=== PATIENT | female | born 2000 | race African-American/Black ===

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

== ENCOUNTER 2022-03-04 10:45 | Emergency (ER) | payer OTHER ==
[~2022-03-04] VITALS: Ht 162.6 cm; Wt 71.7 kg
[~2022-03-04 10:45] MED LIST: MACRODANTIN50 MG PO
== END 2022-03-04 16:25 | disposition home or self-care (01) ==
LOC: EMR PED 10:45 → ER 10:45
DX: R11.10 Vomiting, unspecified (principal); R51.9 Headache, unspecified; R12 Heartburn; R19.7 Diarrhea, unspecified; Z20.822 Contact with and (suspected) exposure to COVID-19

== ENCOUNTER 2022-07-09 09:24 | Emergency (ER) | payer OTHER ==
[~2022-07-09] VITALS: Ht 162.6 cm; Wt 58.5 kg
[2022-07-09] MEDS ORDERED: PEPCID AC20 MG PO (15:26)
== END 2022-07-09 16:04 | disposition home or self-care (01) ==
LOC: ER 09:24 → EMR PED 09:26 → ER 09:26 → EMR PED 16:04
DX: K52.9 Noninfective gastroenteritis and colitis, unspecified (principal); R51.9 Headache, unspecified

== ENCOUNTER 2022-12-01 12:50 | Outpatient (CLI) | payer OTHER ==
[~2022-12-01 12:50] MED LIST changes: +PEPCID AC20 MG PO
== END 2022-12-01 13:55 | disposition home or self-care (01) ==
LOC: PRENATAL 12:50
PROVIDERS: ATTEND Obstetrics & Gynecology Maternal & Fetal Medicine
DX: O36.80X0 Pregnancy with inconclusive fetal viability, not applicable or unspecified (principal); Z3A.12 12 weeks gestation of pregnancy